=== PATIENT | female | born 1945 | race Caucasian/White ===

== ENCOUNTER → 2021-05-20 16:08 | Outpatient (CLI) | payer MEDICARE, OTHER, SELFPAY ==
--- NOTE | 2021-05-20 | DI.MRI.S_ITS ---
PROCEDURE: MR HEAD/BRAIN WO/W CON INDICATIONS: DIZZINESS AND GIDDINESS TECHNIQUE: Noncontrast axial T1 spin echo, axial T2 fast spin echo, sagittal and axial FLAIR, coronal T2 fast spin echo, axial gradient echo, axial diffusion and ADC through the brain. After the administration of contrast, axial and coronal T1 spin echo with fat saturation through the brain. COMPARISON: None. FINDINGS: Image quality: Excellent. CSF spaces: Basal cisterns are patent. No extra-axial fluid collections. Ventricles are normal in size and shape. Brain: No midline shift. No intracranial bleeds or masses. No abnormal intracranial enhancement. There is cerebral volume loss for age. There is periventricular white matter chronic small vessel ischemic change. The brainstem appears normal. Diffusion-weighted images demonstrate no acute ischemic insults. No chronic ischemic insults. Normal intravascular flow voids are present. Skull and face: Calvarial marrow is normal in signal. Orbits appear normal. Note is made of bilateral lens replacements. Sinuses: Sinuses and mastoids appear clear. IMPRESSION: Brain MRI within normal limits for age, demonstrating brain parenchymal volume loss and chronic small vessel ischemic change. No masses or abnormal enhancement can be seen. No findings of acute or subacute infarction can be seen. Dictated by: Yrn Ceja M.D. on 05/20/2021 at 16:22 Approved by: Yrn Ceja M.D. on 05/20/2021 at 16:23
== END ==
PROVIDERS: Family Provider Internal Medicine; PCP Internal Medicine; Referring Provider Internal Medicine; Visit Provider Internal Medicine
DX: R42 Dizziness and giddiness (principal)
CPT/HCPCS: 70553

== ENCOUNTER 2022-04-23 15:55 | Emergency (ER) | payer MEDICARE, OTHER, SELFPAY ==
[2022-04-23 16:00] VITALS: BP 214/94; PULSE 73; RESP 16; TEMP 36.6; O2SAT 97; BMI 41.5
--- NOTE | 2022-04-23 16:25 | DI.RAD.S_ITS ---
PROCEDURE: XR CHEST 1V INDICATIONS: chest pain TECHNIQUE: One view of the chest was acquired. COMPARISON: [facility], , CHEST 1 VIEW, 05/25/2017, 16:48. FINDINGS: Surgical changes and devices: None. Lungs and pleura: Lungs are clear. There is a 2.8 x 1.9 centimeter oval opacity in the right mid to lower lung field. No pleural effusions or pneumothorax. Mediastinum: Mediastinal contours appear normal. Heart size is normal. Bones and chest wall: No suspicious bony lesions. Overlying soft tissues appear unremarkable. IMPRESSION: 1. No acute cardiopulmonary abnormality. 2. 2.8 x 1.9 centimeter oval opacity in the right mid to lower lung field. This is probably due to overlying soft tissue. Recommend PA and lateral view of the chest with a nipple marker. Dictated by: Joe Delatorre M.D. on 04/23/2022 at 17:10 Approved by: Joe Delatorre M.D. on 04/23/2022 at 17:13
[2022-04-23 16:45] LABS: Prothrombin Time 11.9 SECONDS (10.1-12.7)
[2022-04-23 16:48] LABS: PTT Partial Thromboplastin Tim 29 SECONDS (26-36)
[2022-04-23 16:49] LABS: Alanine Aminotransferase 20 IU/L (<35); Albumin 4.3 g/dL (3.5-5.0); Albumin Globulin Ratio 1.1 (1.0-2.8); Alkaline Phosphatase 105 U/L (38-126); Aspartate Aminotransferase 22 IU/L (14-36); BUN Creatinine Ratio 18.7 (6-22); Bilirubin Total 0.7 mg/dL (0.2-1.3); Blood Urea Nitrogen 28 mg/dL (7-17); Calcium 9.2 mg/dL (8.4-10.2); Carbon Dioxide 28 mmol/L (22-32); Chloride 96 mmol/L (98-107); Creatine Kinase 55 U/L (30-135); Estimated Glomerular Filt Rate 36 mL/min (>60); Glucose 175 mg/dL (80-110); HEMOLYSIS < 15 (0-50); Lipase 182 U/L (23-300); Magnesium 1.9 mg/dL (1.6-2.3); Potassium 4.6 mmol/L (3.4-5.1); Sodium 137 mmol/L (137-145); Total Protein 8.3 g/dL (6.3-8.2)
[2022-04-23 17:00] LABS: Add Manual Diff / Slide Review NO; Basophils Absolute Auto 100 /uL (0-100); Basophils Percent Auto 0.9 % (0-2); Eosinophils Absolute Auto 600 /uL (0-450); Eosinophils Percent Auto 5.9 % (2-4); Hematocrit 37.1 % (36-46); Hemoglobin 12.7 g/dL (12.0-16.0); Lymphocytes Absolute Auto 2800 /uL (1100-4500); Lymphocytes Percent Auto 27.4 % (25-40); Mean Corpuscular HGB Conc 34.1 % (30-36); Mean Corpuscular Hemoglobin 29.3 PG (26-34); Mean Corpuscular Volume 85.8 fL (80-100); Monocytes Absolute Auto 600 /uL (0-900); Neutrophils Absolute Auto 6200 /uL (1500-7000); Neutrophils Percent Auto 59.8 % (50-75); Platelet Count 270 X10^3/uL (150-400); Red Blood Cell Count 4.32 X10^6/uL (4.0-5.2); Red Cell Distribution Width 14.1 % (11.6-14.8); White Blood Cell Count 10.3 X10^3/uL (4.5-11.0)
[2022-04-23 17:01] LABS: Troponin I < 0.012 ng/mL (0.01-0.034)
[2022-04-23 19:15] VITALS: BP 188/79; PULSE 78; RESP 16; O2SAT 95
--- NOTE | 2022-04-23 19:21 | ED_ITS ---
HPI - Recheck/Abnormal Lab/Rx General Chief Complaint: Recheck/Abnormal Lab/Rx Stated Complaint: High K Time Seen by Provider: 04/23/22 19:11 Source: patient Mode of arrival: Ambulatory History of Present Illness HPI narrative: Patient is a 76-year-old female who had labs drawn earlier today had an outside facility and was contacted and was told that her potassium was high and that her creatinine was high. She was told to come to the emergency department. She is no specific symptoms related to these. Related Data Home Medications Medication Instructions Recorded Confirmed aspirin 81 mg tablet,delayed 81 mg PO QDAY ##0 05/25/17 release atenolol 100 mg tablet 100 mg PO QDAY ##0 05/25/17 atorvastatin 40 mg tablet 40 mg PO QDAY ##0 05/25/17 fluticasone 250 mcg-salmeterol 50 1 puff INH BID ##0 05/25/17 mcg/dose blistr powdr for inhalation (Advair Diskus) levothyroxine 25 mcg tablet 25 mcg PO QAM ##0 05/25/17 (Synthroid) metformin 1,000 mg tablet 1,000 mg PO BIDCC ##0 05/25/17 valsartan 80 mg tablet (Diovan) 80 mg PO BID ##0 05/25/17 Previous Rx's Medication Instructions Recorded furosemide 40 mg tablet 40 mg PO BID #60 tabs 05/27/17 glipizide 10 mg tablet, extended 10 mg PO AMCC #30 tabs 05/27/17 release 24 hr Allergies Allergy/AdvReac Type Severity Reaction Status Date / Time lisinopril [LISINOPRIL] Allergy Unknown Unverified 08/03/17 12:28 telmisartan [From MICARDIS] Allergy Unknown Unverified 08/03/17 12:28 Review of Systems Cardiovascular Cardiovascular: Reports system reviewed and no additional complaints, except as documented Respiratory Respiratory: Reports system reviewed and no additional complaints, except as documented Gastrointestinal Gastrointestinal: Reports system reviewed and no additional complaints, except as documented Integumentary/Breasts Skin/Breast: Reports system reviewed and no additional complaints, except as documented Neurologic Neurologic: Reports system reviewed and no additional complaints, except as documented Hematologic/Lymphatic On Anticoagulants: No Patient History Social History Smoking Status: Never smoker Smoking Status: Never smoker alcohol intake frequency: holidays/special occasions only Substance Use Type: does not use Exam Initial Vital Signs Initial Vital Signs: Vital Signs Temperature 97.9 F 04/23/22 16:00 Pulse Rate 73 04/23/22 16:00 Respiratory Rate 16 04/23/22 16:00 Blood Pressure 214/94 H 04/23/22 16:00 Pulse Oximetry 97 04/23/22 16:00 Oxygen Delivery Method 04/23/22 16:00 Const General: cooperative, comfortable and No ill appearing HENMT Head: normal to inspection and normocephalic Resp Effort & Inspection: normal respiratory effort Cardio Rate: regular rate GI Inspection: normal to inspection Skin General: no rashes or lesions noted Neuro General: patient alert, patient awake and moves all extremities Extrem General: normal to inspection and capillary refill normal Course Orders Ordered: ED Orders 04/23/22 16:25 XR chest 1V Stat Complete Blood Count AUTO DIFF Stat Comprehensive Metabolic Panel Stat Lipase Stat Magnesium Stat Partial Thromboplastin Time Stat Prothrombin Time INR Stat Troponin & CK Cardiac Panel Stat 04/23/22 17:01 EKG-12 Lead Stat Vital Signs Vital signs: Vital Signs - 8 hr 04/23/22 19:15 Pulse Rate 78 Respiratory Rate 16 Blood Pressure 188/79 H Pulse Oximetry 95 Oxygen Delivery Method Room Air MDM - Recheck/Abnormal Lab/Rx Lab Data Attestation: I reviewed the patient's lab results. Result diagrams: 04/23/22 16:25 04/23/22 16:25 Labs: Lab Results 04/23/22 04/23/22 04/23/22 Range/Units 16:25 16:25 16:25 WBC 10.3 (4.5-11.0) X10^3/uL RBC 4.32 (4.0-5.2) X10^6/uL Hgb 12.7 (12.0-16.0) g/dL Hct 37.1 (36-46) % MCV 85.8 (80-100) fL MCH 29.3 (26-34) PG MCHC 34.1 (30-36) % RDW 14.1 (11.6-14.8) % Plt Count 270 (150-400) X10^3/uL Neut % (Auto) 59.8 (50-75) % Lymph % (Auto) 27.4 (25-40) % [place] % (Auto) 6.0 (3-14) % Eos % (Auto) 5.9 H (2-4) % Baso % (Auto) 0.9 (0-2) % Neut # (Auto) 6200 (2007-0029) /uL Lymph # (Auto) 2800 (2661-3304) /uL [place] # (Auto) 600 (0-900) /uL Eos # (Auto) 600 H (0-450) /uL Baso # (Auto) 100 (0-100) /uL PT 11.9 (10.1-12.7) SECONDS INR 1.0 (0.9-1.3) APTT 29 (26-36) SECONDS Sodium 137 (137-145) mmol/L Potassium 4.6 (3.4-5.1) mmol/L Chloride 96 L (98-107) mmol/L Carbon Dioxide 28 (22-32) mmol/L BUN 28 H (7-17) mg/dL Creatinine 1.50 H (0.52-1.04) mg/dL Estimated GFR 36 L (>60) mL/min BUN/Creatinine Ratio 18.7 (6-22) Glucose 175 H (80-110) mg/dL Calcium 9.2 (8.4-10.2) mg/dL Magnesium 1.9 (1.6-2.3) mg/dL Total Bilirubin 0.7 (0.2-1.3) mg/dL AST 22 (14-36) IU/L ALT 20 (<35) IU/L Alkaline Phosphatase 105 (38-126) U/L Total Creatine Kinase 55 (30-135) U/L CK-MB (CK-2) TNP CK-MB (CK-2) Rel Index TNP Troponin I < 0.012 (0.01-0.034) ng/mL Total Protein 8.3 H (6.3-8.2) g/dL Albumin 4.3 (3.5-5.0) g/dL Globulin 4.0 (1.7-4.1) g/dL Albumin/Globulin Ratio 1.1 (1.0-2.8) Lipase 182 (23-300) U/L Imaging Data Chest x-ray: Radiologist's Impression: [address] [address] XRay Report Signed Patient: Cristal Sauer MR#: [id number] : 1945 Acct:[id number] Age/Sex: 76 / F Date of Service: 04/23/22 Loc: ED Accession Number: [id number] ?? Procedure: XR chest 1V Ordering Provider: Denys Levine D.O. PROCEDURE:? XR CHEST 1V ? INDICATIONS:? chest pain ? TECHNIQUE:? One view of the chest was acquired.? ? COMPARISON:? [facility], CHEST 1 VIEW, 05/25/2017, 16:48. ? FINDINGS:? ? Surgical changes and devices:? None.? ? Lungs and pleura:? Lungs are clear.? There is a 2.8 x 1.9 centimeter oval opacity in the right mid to lower lung field.? No pleural effusions or pneumothorax.? ? Mediastinum:? Mediastinal contours appear normal.? Heart size is normal.? ? Bones and chest wall:? No suspicious bony lesions.? Overlying soft tissues appear unremarkable.? ? IMPRESSION:? 1. No acute cardiopulmonary abnormality. 2. 2.8 x 1.9 centimeter oval opacity in the right mid to lower lung field.? This is probably due to overlying soft tissue.? Recommend PA and lateral view of the chest with a nipple marker.? ? Dictated by: Joe Delatorre M.D. on 04/23/2022 at 17:10 ? ? Approved by: Joe Delatorre M.D. on 04/23/2022 at 17:13?? ECG Data Attestation: I personally reviewed and interpreted this ECG as follows: Interpretation: Sinus rhythm Ventricular rate is 71 Normal axis Normal QTC Nonspecific ST T wave changes MDM Narrative Medical decision making narrative: The potassium on the labs today is unremarkable. I informed her that the elevation earlier today was a lab abnormality and most likely hemolysis. She does have a creatinine 1.5 but I do not have a baseline for her. Instructed her that she should contact her primary doctor for this. We also discussed the abnormal finding on her chest x-ray and that she should follow up with her primary doctor regarding this as well. Will discharge home without further workup here in the ER. Discharge Plan Departure Patient Disposition: Home Clinical Impression: Hypertension, Lung nodule Instructions: High Blood Pressure Activity Restrictions/Additional Instructions: Recommend that you continue to take all of your medications as directed and continue to take your blood pressure at home. Contact your primary doctor for follow-up. Return to the emergency department for any new or worsening symptoms. Prescriptions: No Action fluticasone propion-salmeterol [Advair Diskus] 250 MCG/50 MCG blister with device 1 puff INH BID Qty: 0 atenolol 100 MG tablet 100 mg PO QDAY Qty: 0 atorvastatin 40 MG tablet 40 mg PO QDAY Qty: 0 valsartan [Diovan] 80 MG tablet 80 mg PO BID Qty: 0 metformin 1,000 MG tablet 1,000 mg PO BIDCC Qty: 0 aspirin 81 MG tablet,delayed release (DR/EC) 81 mg PO QDAY Qty: 0 levothyroxine [Synthroid] 25 MCG tablet 25 mcg PO QAM Qty: 0 furosemide 40 MG tablet 40 mg PO BID Qty: 60 0RF glipizide 10 MG tablet extended release 24hr 10 mg PO AMCC Qty: 30 0RF Referrals: Kathy Denny MD [Primary Care Provider] -
== END 2022-04-23 19:40 | disposition home or self-care (01) ==
PROVIDERS: Emergency Medicine; Emergency Provider Emergency Medicine; Family Provider Internal Medicine; PCP Internal Medicine
DX: I10 Essential (primary) hypertension (principal); R91.1 Solitary pulmonary nodule; R07.9 Chest pain, unspecified
CPT/HCPCS: 71045; 80053; 82550; 83690; 83735; 84484; 85025; 85610; 85730; 93005; 99281; 99284

== ENCOUNTER 2023-08-01 15:50 | Emergency (ER) | payer MEDICARE, OTHER, SELFPAY ==
[2023-08-01 16:31] VITALS: BP 218/88; PULSE 85; RESP 18; TEMP 36.7; O2SAT 95; BMI 42.3
[2023-08-01 19:48] VITALS: BP 201/88; PULSE 88; RESP 16; O2SAT 96
--- NOTE | 2023-08-01 20:12 | ED.GENADULT ---
HPI - General Adult General Chief complaint: Extremity Injury, Upper Stated complaint: L index/ elbow/ swollen/painful/hot to touch T-4 Time Seen by Provider: 08/01/23 19:45 Source: patient and family Mode of arrival: Ambulatory History of Present Illness HPI narrative: 77-year-old female no history of gout. Here for evaluation of left elbow redness and tenderness and left index and middle finger redness. These areas are also swollen and warm to the touch. The symptom has been going on for the past 4 days. No fevers. No other joint tenderness. No trauma. She has had a history of cellulitis. Is not currently on antibiotics. No fevers. Related Data Home Medications Medication Instructions Recorded Confirmed aspirin 81 mg tablet,delayed 81 mg PO QDAY ##0 05/25/17 release atenolol 100 mg tablet 100 mg PO QDAY ##0 05/25/17 atorvastatin 40 mg tablet 40 mg PO QDAY ##0 05/25/17 fluticasone 250 mcg-salmeterol 50 1 puff INH BID ##0 05/25/17 mcg/dose blistr powdr for inhalation (Advair Diskus) levothyroxine 25 mcg tablet 25 mcg PO QAM ##0 05/25/17 (Synthroid) metformin 1,000 mg tablet 1,000 mg PO BIDCC ##0 05/25/17 valsartan 80 mg tablet (Diovan) 80 mg PO BID ##0 05/25/17 Previous Rx's Medication Instructions Recorded furosemide 40 mg tablet 40 mg PO BID #60 tabs 05/27/17 glipizide 10 mg tablet, extended 10 mg PO [facility] #30 tabs 05/27/17 release 24 hr cephalexin 500 mg capsule 500 mg PO QID 7 days #28 caps 08/01/23 Allergies Allergy/AdvReac Type Severity Reaction Status Date / Time lisinopril [LISINOPRIL] Allergy Unknown Unverified 08/03/17 12:28 telmisartan [From MICARDIS] Allergy Unknown Unverified 08/03/17 12:28 Review of Systems Constitutional Constitutional: Reports system reviewed and no additional complaints, except as documented Musculoskeletal Musculoskeletal: Reports system reviewed and no additional complaints, except as documented Integumentary/Breasts Skin/Breast: Reports system reviewed and no additional complaints, except as documented Neurologic Neurologic: Reports system reviewed and no additional complaints, except as documented Patient History Social History Smoking Status: Never smoker Smoking Status: Never smoker alcohol intake frequency: holidays/special occasions only Substance Use Type: does not use Exam Initial Vital Signs Initial Vital Signs: Vital Signs Temperature 98.1 F 08/01/23 16:31 Pulse Rate 85 08/01/23 16:31 Respiratory Rate 18 08/01/23 16:31 Blood Pressure 218/88 H 08/01/23 16:31 Pulse Oximetry 95 08/01/23 16:31 Oxygen Delivery Method Room Air 08/01/23 16:31 Const General: cooperative and comfortable HENMT Head: normal to inspection and normocephalic Cardio Pulses: radial pulses present on the left Skin Other: Tenderness to palpation specifically over the olecranon process of the left elbow. No vesicles or blisters. Has redness on the left index finger and middle finger. It does extend a short distance proximal to the MCP joint the dorsum of the hand. Neuro Sensory Exam: no sensory deficits noted Extrem Other: Patient can flex and extend at the elbow and also with the fingers but somewhat limited because of discomfort Course Orders Ordered: Discontinued Medications Cephalexin HCl (Cephalexin 250 Mg Capsule) 500 mg PO NOW ONE Stop: 08/01/23 20:13 Last Admin: 08/01/23 20:19 Dose: 500 mg Documented By: JONY Vital Signs Vital signs: Vital Signs - 8 hr 08/01/23 19:48 08/01/23 20:31 Pulse Rate 88 80 Respiratory Rate 16 16 Blood Pressure 201/88 H 190/85 H Pulse Oximetry 96 96 Oxygen Delivery Method Room Air Room Air Medical Decision Making [facility] Narrative Medical decision making narrative: Patient does not have a history of gout. Her presentation today I would consider not consistent with gout. She does have redness and tenderness over the olecranon of the left elbow and also the fingers of the left hand. She was afebrile. No leukocytosis. Considered septic joint but her exam is more consistent with a cellulitis. There are no breaks in the skin. No deep abscesses. Will place the patient on antibiotics. First dose given here in the ER. Will send a prescription to the pharmacy of her choice. She was given return precautions. She expressed understanding and agreement. Discharge Plan Departure Patient Disposition: Home Clinical Impression: Cellulitis Instructions: Cellulitis Activity Restrictions/Additional Instructions: Take the antibiotics as directed. You can also take Tylenol for any discomfort. If your symptoms worsen despite the antibiotics please return to the emergency department for further evaluation. Prescriptions: New cephalexin 500 mg capsule 500 mg PO QID 7 Days Qty: 28 0RF No Action fluticasone propion-salmeterol [Advair Diskus] 250 MCG/50 MCG blister with device 1 puff INH BID Qty: 0 atenolol 100 MG tablet 100 mg PO QDAY Qty: 0 atorvastatin 40 MG tablet 40 mg PO QDAY Qty: 0 valsartan [Diovan] 80 MG tablet 80 mg PO BID Qty: 0 metformin 1,000 MG tablet 1,000 mg PO BIDCC Qty: 0 aspirin 81 MG tablet,delayed release (DR/EC) 81 mg PO QDAY Qty: 0 levothyroxine [Synthroid] 25 MCG tablet 25 mcg PO QAM Qty: 0 furosemide 40 MG tablet 40 mg PO BID Qty: 60 0RF glipizide 10 MG tablet extended release 24hr 10 mg PO AMCC Qty: 30 0RF Referrals: Kathy Denny MD [Family Provider] - Stand Alone Forms: Patient Portal/API
[2023-08-01] MEDS: cephALEXin 250 MG CAPSULE 500 MG PO (20:19)
[2023-08-01 20:31] VITALS: BP 190/85; PULSE 80; RESP 16; O2SAT 96
== END 2023-08-01 20:32 | disposition home or self-care (01) ==
PROVIDERS: Emergency Provider Emergency Medicine; Family Provider Internal Medicine; PCP Family Medicine
DX: L03.114 Cellulitis of left upper limb (principal)
CPT/HCPCS: 99283

== ENCOUNTER → 2023-10-19 13:56 | Outpatient (CLI) | payer MEDICARE, OTHER, SELFPAY ==
--- NOTE | 2023-10-19 13:57 | DI.RAD.S_ITS ---
PROCEDURE: XR DEXA AXIAL SKELETON INDICATIONS: AGE RELATED OSTEOPOROSIS COMPARISON: [facility], , DEXA AXIAL SKELETON, 10/22/2016, 10:41. FINDINGS: Lumbar Spine: Bone mineral density 1.420 g/cm2, T score 3.3. Left Hip: Bone mineral density 1.169 g/cm2, T score 1.9. Left Femoral Neck: Bone mineral density is 0.832 g/cm2, T score -0.2. Right Hip: Bone mineral density 1.080 g/cm2, T score 1.1. Right Femoral Neck: Bone mineral density 0.807 g/cm2, T score -0.4. Fracture Risk Calculation (when applicable): 10-year fracture risk of a major osteoporotic fracture 7.1% and of a hip fracture 0.7%. (T score greater or equal to -1.0 to: NORMAL) (T score from -1.1 to -2.4: OSTEOPENIA) (T score less than or equal to -2.5: OSTEOPOROSIS) IMPRESSION: Normal bone mineral density. Follow-up guidelines as follows: Osteoporosis: Consider a repeat DEXA and Vertebral Fracture Assessment (VFA) exam in 2 years or sooner if medically necessary, to reassess this patient's status. Osteopenia: Consider a repeat DEXA in 2-3 years to reassess this patient's status, or if there is a new clinical indication. Normal: Consider a repeat DEXA in 5 years or sooner, or if there is a new clinical indication. All treatment decisions require clinical judgment and consideration of individual patient factors, including patient preferences, comorbidities, previous drug use, risk factors not captured in the FRAX model (e.g., frailty, falls, vitamin D deficiency, increased bone turnover, interval significant decline in bone density ) and possible under- or over-estimation of fracture risk by FRAX. In addition, the NOF Guide recommends that FDA-approved medical therapies be considered in postmenopausal women and men age >= 50 years with a: * Hip or vertebral (clinical or morphometric) fracture * T-score of <=-2.5 at the spine or hip * Ten-year fracture probability by FRAX of >= 3% for hip fracture or >=20% for major osteoporotic fracture. People with diagnosed cases of osteoporosis or at high risk for fracture should have regular bone mineral density tests. For patients eligible for Medicare, routine testing is allowed once every 2 years. The testing frequency can be increased to one year for patients who have rapidly progressing disease, those who are receiving or discontinuing medical therapy to restore bone mass, or have additional risk factors. Dictated by: Justo Laura M.D. on 10/19/2023 at 16:48 Approved by: Justo Laura M.D. on 10/19/2023 at 16:50
== END ==
PROVIDERS: Family Provider Internal Medicine; PCP Family Medicine; Referring Provider Family Medicine; Visit Provider Family Medicine
DX: M81.0 Age-related osteoporosis without current pathological fracture (principal)
CPT/HCPCS: 77080

== ENCOUNTER 2024-04-15 14:04 | Emergency (ER) | payer MEDICARE, OTHER, SELFPAY ==
[2024-04-15] VITALS (21 sets, daily range): BP systolic 110–193; BP diastolic 53–84; PULSE 64–83; RESP 14–24; TEMP 36.5; O2SAT 95–100; BMI 40.6
[2024-04-15 15:05] LABS: Hemoglobin 12.4 g/dL (12.0-16.0); Mean Corpuscular HGB Conc 31.7 % (30-36); Mean Corpuscular Hemoglobin 29.8 PG (26-34); Mean Corpuscular Volume 93.9 fL (80-100); Platelet Count 206 X10^3/uL (150-400); Red Blood Cell Count 4.16 X10^6/uL (4.0-5.2); Red Cell Distribution Width 17.1 % (11.6-14.8); White Blood Cell Count 10.5 X10^3/uL (4.5-11.0)
--- NOTE | 2024-04-15 15:05 | EKG_ITS ---
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
[2024-04-15 15:07] LABS: Add Manual Diff / Slide Review YES
[2024-04-15 15:16] LABS: Alanine Aminotransferase 28 IU/L (<35); Albumin 3.8 g/dL (3.5-5.0); Albumin Globulin Ratio 1.4 (1.0-2.8); Alkaline Phosphatase 93 U/L (38-126); Aspartate Aminotransferase 24 IU/L (14-36); BUN Creatinine Ratio 31.7 (6-22); Bilirubin Total 0.6 mg/dL (0.2-1.3); Blood Urea Nitrogen 73 mg/dL (7-17); Calcium 9.2 mg/dL (8.4-10.2); Carbon Dioxide 14 mmol/L (22-32); Chloride 116 mmol/L (98-107); Estimated Glomerular Filt Rate 21 mL/min (>60); Globulin 2.7 g/dL (1.7-4.1); Glucose 134 mg/dL (80-110); HEMOLYSIS 17 (0-50); Sodium 138 mmol/L (137-145); Total Protein 6.5 g/dL (6.3-8.2)
[2024-04-15 15:25] LABS: Potassium 5.8 mmol/L (3.4-5.1)
[2024-04-15 15:36] LABS: Anisocytosis 1+; Neutrophils Absolute Manual 5145 /uL (3000-5900); Total Cells Counted 100
--- NOTE | 2024-04-15 16:44 | ED.RECABL ---
HPI - Recheck/Abnormal Lab/Rx <Jeff Saraiva MD - Last Filed: 04/16/24 07:33> General Chief Complaint: Recheck/Abnormal Lab/Rx Stated Complaint: Sent by PCP for Bloodwork/Recheck Time Seen by Provider: 04/15/24 16:42 History of Present Illness HPI narrative: 78-year-old female has history of chronic skin rash that she attributes to nerves, apparently felt to have infection by her regular provider, taking doxycycline and another oral antibiotic that she can not name, having diarrhea yesterday, labs were drawn, she was told that she would abnormal potassium that was too high, here for further evaluation. No black or red stools. No nausea or vomiting. She denies chest pain, denies shortness of breath. She has not recall having any previous problems with her kidneys. Related Data Home Medications Medication Instructions Recorded Confirmed aspirin 81 mg tablet,delayed 81 mg PO QDAY ##0 05/25/17 release atenolol 100 mg tablet 100 mg PO QDAY ##0 05/25/17 atorvastatin 40 mg tablet 40 mg PO QDAY ##0 05/25/17 fluticasone 250 mcg-salmeterol 50 1 puff INH BID ##0 05/25/17 mcg/dose blistr powdr for inhalation (Advair Diskus) levothyroxine 25 mcg tablet 25 mcg PO QAM ##0 05/25/17 (Synthroid) metformin 1,000 mg tablet 1,000 mg PO BIDCC ##0 05/25/17 valsartan 80 mg tablet (Diovan) 80 mg PO BID ##0 05/25/17 Previous Rx's Medication Instructions Recorded furosemide 40 mg tablet 40 mg PO BID #60 tabs 05/27/17 glipizide 10 mg tablet, extended 10 mg PO [facility] #[facility] tabs 05/27/17 release 24 hr Allergies Allergy/AdvReac Type Severity Reaction Status Date / Time empagliflozin Allergy Intermediate Verified 04/15/24 14:08 [From Jardiance] lisinopril [LISINOPRIL] Allergy Unknown Unverified 08/03/17 12:28 telmisartan [From MICARDIS] Allergy Unknown Unverified 08/03/17 12:28 alendronate sodium AdvReac Severe kidney Verified 04/15/24 14:10 function Patient History <Jeff Saravia MD - Last Filed: 04/16/24 07:33> Social History Smoking Status: Never smoker Smoking Status: Never smoker alcohol intake frequency: holidays/special occasions only Exam <Jeff Saravia MD - Last Filed: 04/16/24 07:33> Narrative Exam Narrative: GENERAL: Well-developed patient, in mild distress. HEAD: Atraumatic. Normocephalic. EYES: Pupils equal round and reactive. Extraocular motions intact. No scleral icterus. No injection or drainage. ENT: Nose without bleeding, purulent drainage. Throat without erythema, tonsillar hypertrophy or exudate. Airway patent. NECK: Trachea midline. Non tender CARDIOVASCULAR: Regular rate and rhythm without murmurs, gallops, or rubs. RESPIRATORY: Clear to auscultation. Breath sounds equal bilaterally. No wheezes, rales, or rhonchi. GASTROINTESTINAL: Abdomen soft, non-tender, nondistended. EXTREMITIES: No edema or joint tenderness. BACK: Nontender without deformity or crepitance. No flank tenderness. NEURO: AOx3. Motor functions grossly nonfocal SKIN: No rash or erythema of visible areas. Diffuse dry skin changes with some scale, denies history of eczema but could consider, no obvious urticarial plaques, no vesicles, no areas of erythema or cellulitis seem obvious. Initial Vital Signs Initial Vital Signs: Vital Signs Temperature 97.7 F 04/15/24 14:10 Pulse Rate 77 04/15/24 14:10 Respiratory Rate 16 04/15/24 14:10 Blood Pressure 128/65 04/15/24 14:10 Pulse Oximetry 99 04/15/24 14:10 Oxygen Delivery Method Room Air 04/15/24 14:10 <Latisha Nieto DO - Last Filed: 04/16/24 01:47> Initial Vital Signs Initial Vital Signs: Vital Signs Temperature 97.7 F 04/15/24 14:10 Pulse Rate 77 04/15/24 14:10 Respiratory Rate 16 04/15/24 14:10 Blood Pressure 128/65 04/15/24 14:10 Pulse Oximetry 99 04/15/24 14:10 Oxygen Delivery Method Room Air 04/15/24 14:10 Course <Jeff Saravia MD - Last Filed: 04/16/24 07:33> Orders Ordered: Discontinued Medications Sodium Chloride (Normal Saline 0.9%) 1,000 mls @ 1,000 mls/hr IV BOLUS ONE Stop: 04/15/24 17:41 Last Infusion: 04/15/24 17:56 Dose: Infused Documented By: Admin: 04/15/24 17:00 Dose: 1,000 mls/hr Documented By: ALISHA Sodium Chloride (Normal Saline 0.9%) 1,000 mls @ 1,000 mls/hr IV BOLUS ONE Stop: 04/15/24 19:45 Last Infusion: 04/15/24 19:35 Dose: Infused Documented By: Admin: 04/15/24 18:50 Dose: 1,000 mls/hr Documented By: ALISHA Sodium Chloride (Normal Saline 0.9%) 1,000 mls @ 150 mls/hr IV CONT KAREN Last Admin: 04/15/24 19:37 Dose: 150 mls/hr Documented By: ALISHA Vital Signs Vital signs: Vital Signs - 8 hr 04/15/24 18:00 04/15/24 18:00 04/15/24 18:21 Pulse Rate 68 Respiratory Rate 16 Blood Pressure 153/80 H 169/74 H Pulse Oximetry 98 Oxygen Delivery Method 04/15/24 18:21 04/15/24 18:30 04/15/24 18:30 Pulse Rate 81 67 Respiratory Rate 18 16 Blood Pressure 158/69 H Pulse Oximetry 97 100 Oxygen Delivery Method 04/15/24 19:00 04/15/24 19:00 04/15/24 19:30 Pulse Rate 72 Respiratory Rate 14 Blood Pressure 171/75 H 163/84 H Pulse Oximetry 100 Oxygen Delivery Method 04/15/24 19:30 04/15/24 20:00 04/15/24 20:00 Pulse Rate 73 80 Respiratory Rate 16 20 Blood Pressure 110/73 Pulse Oximetry 98 98 Oxygen Delivery Method 04/15/24 20:30 04/15/24 20:30 04/15/24 21:02 Pulse Rate 75 81 Respiratory Rate 15 23 Blood Pressure 155/70 H Pulse Oximetry 98 98 Oxygen Delivery Method 04/15/24 21:03 04/15/24 21:30 04/15/24 21:31 Pulse Rate 76 Respiratory Rate 16 Blood Pressure 167/72 H 193/79 H Pulse Oximetry 98 Oxygen Delivery Method 04/15/24 21:32 04/15/24 21:32 04/15/24 22:00 Pulse Rate 82 Respiratory Rate 24 Blood Pressure 188/83 H 164/67 H Pulse Oximetry 99 Oxygen Delivery Method 04/15/24 22:00 04/15/24 22:16 Pulse Rate 83 77 Respiratory Rate 24 14 Blood Pressure 164/67 H Pulse Oximetry 99 98 Oxygen Delivery Method Room Air <Latisha Nieto DO - Last Filed: 04/16/24 01:47> Orders Ordered: Discontinued Medications Sodium Chloride (Normal Saline 0.9%) 1,000 mls @ 1,000 mls/hr IV BOLUS ONE Stop: 04/15/24 17:41 Last Infusion: 04/15/24 17:56 Dose: Infused Documented By: Admin: 04/15/24 17:00 Dose: 1,000 mls/hr Documented By: ALISHA Sodium Chloride (Normal Saline 0.9%) 1,000 mls @ 1,000 mls/hr IV BOLUS ONE Stop: 04/15/24 19:45 Last Infusion: 04/15/24 19:35 Dose: Infused Documented By: Admin: 04/15/24 18:50 Dose: 1,000 mls/hr Documented By: ALISHA Sodium Chloride (Normal Saline 0.9%) 1,000 mls @ 150 mls/hr IV CONT KAREN Last Admin: 04/15/24 19:37 Dose: 150 mls/hr Documented By: ALISHA Vital Signs Vital signs: Vital Signs - 8 hr 04/15/24 18:00 04/15/24 18:00 04/15/24 18:21 Pulse Rate 68 Respiratory Rate 16 Blood Pressure 153/80 H 169/74 H Pulse Oximetry 98 Oxygen Delivery Method 04/15/24 18:21 04/15/24 18:30 04/15/24 18:30 Pulse Rate 81 67 Respiratory Rate 18 16 Blood Pressure 158/69 H Pulse Oximetry 97 100 Oxygen Delivery Method 04/15/24 19:00 04/15/24 19:00 04/15/24 19:30 Pulse Rate 72 Respiratory Rate 14 Blood Pressure 171/75 H 163/84 H Pulse Oximetry 100 Oxygen Delivery Method 04/15/24 19:30 04/15/24 20:00 04/15/24 20:00 Pulse Rate 73 80 Respiratory Rate 16 20 Blood Pressure 110/73 Pulse Oximetry 98 98 Oxygen Delivery Method 04/15/24 20:30 04/15/24 20:30 04/15/24 21:02 Pulse Rate 75 81 Respiratory Rate 15 23 Blood Pressure 155/70 H Pulse Oximetry 98 98 Oxygen Delivery Method 04/15/24 21:03 04/15/24 21:30 04/15/24 21:31 Pulse Rate 76 Respiratory Rate 16 Blood Pressure 167/72 H 193/79 H Pulse Oximetry 98 Oxygen Delivery Method 04/15/24 21:32 04/15/24 21:32 04/15/24 22:00 Pulse Rate 82 Respiratory Rate 24 Blood Pressure 188/83 H 164/67 H Pulse Oximetry 99 Oxygen Delivery Method 04/15/24 22:00 04/15/24 22:16 Pulse Rate 83 77 Respiratory Rate 24 14 Blood Pressure 164/67 H Pulse Oximetry 99 98 Oxygen Delivery Method Room Air MDM - Recheck/Abnormal Lab/Rx <Jeff Saravia MD - Last Filed: 04/16/24 07:33> Lab Data Attestation: I reviewed the patient's lab results. Lab results narrative: White blood cell count 24170, hemoglobin 12.4, platelets [id number]. Potassium 5.8 elevated. Serum CO2 14 decreased. BUN 73 with creatinine 2.3, glucose 134. Liver functions unremarkable 04/15/24 14:57 04/15/24 21:27 Labs: Lab Results 04/15/24 04/15/24 Range/Units 14:57 21:27 WBC 10.5 (4.5-11.0) X10^3/uL RBC 4.16 (4.0-5.2) X10^6/uL Hgb 12.4 (12.0-16.0) g/dL Hct 39.0 (36-46) % MCV 93.9 (80-100) fL MCH 29.8 (26-34) PG MCHC 31.7 (30-36) % RDW 17.1 H (11.6-14.8) % Plt Count 206 (150-400) X10^3/uL Neut % (Auto) Not Reportable Lymph % (Auto) Not Reportable [place] % (Auto) Not Reportable Eos % (Auto) Not Reportable Baso % (Auto) Not Reportable Lymph # (Auto) Not Reportable [place] # (Auto) Not Reportable Baso # (Auto) Not Reportable Total Counted 100 Seg Neutrophils % 48.0 (38-70) % Band Neutrophils % 1.0 L (3-7) % Lymphocytes % (Manual) 20.0 L (25-45) % Monocytes % (Manual) 2.0 (2-11) % Eosinophils % (Manual) 28.0 H (2-4) % Basophils % (Manual) 1.0 (0-1) % Neutrophils # (Manual) 5145 (9726-0021) /uL RBC Morphology See below Anisocytosis 1+ H Sodium 138 136 L (137-145) mmol/L Potassium 5.8 H 5.1 (3.4-5.1) mmol/L Chloride 116 H 119 H (98-107) mmol/L Carbon Dioxide 14 L 13 L (22-32) mmol/L BUN 73 H 63 H (7-17) mg/dL Creatinine 2.30 H 1.77 H (0.52-1.04) mg/dL Estimated GFR 21 L 29 L (>60) mL/min BUN/Creatinine Ratio 31.7 H 35.6 H (6-22) Glucose 134 H 101 (80-110) mg/dL Calcium 9.2 8.4 (8.4-10.2) mg/dL Total Bilirubin 0.6 (0.2-1.3) mg/dL AST 24 (14-36) IU/L ALT 28 (<35) IU/L Alkaline Phosphatase 93 (38-126) U/L Total Protein 6.5 (6.3-8.2) g/dL Albumin 3.8 (3.5-5.0) g/dL Globulin 2.7 (1.7-4.1) g/dL Albumin/Globulin Ratio 1.4 (1.0-2.8) MDM Narrative Medical decision making narrative: 78-year-old female on to oral antibiotics for possible skin infection, loose stools, called about abnormal blood test. Labs sent here, potassium 5.8 noted with BUN and creatinine elevated from previous baseline. In context of diarrhea consider dehydration. IV fluid bolus. Oral Lokelma dose for now. Consider admission, will contact hospitalist, though patient does not seem to be interested in admission at this time. Case discussed with hospitalist Dr. Lezama, suggests a trial of IV fluids and Lokelma, repeat BMP planned later this evening. Signed out to [facility] ED shift physician Dr. Nieto. Dr. Nieto-patient signed out to me by Dr. Saravia I have seen evaluated patient myself. Discussed with her that she was quite dehydrated she has an elevated creatinine 2.3 previously 1.5 and a BUN of 73 previously 28 bicarb 14 previously 8 potassium 5.8. She has been having diarrhea most likely dehydration. Getting a 2 L of IV fluids and rechecking labs. Discussed with her need for admission to the hospital for IV fluids and monitoring. She is not willing to stay in the hospital. She has a take her has been dialysis in the morning. She is agreeable to stay for 2 L of fluid Patient is a 2 L of IV fluid and ongoing maintenance fluids she does have improvement in her potassium 5.1 creatinine has also improved at 1.77 closer to her baseline of 1.5 BUN is 63. She was increased chloride which is to be expected after 2 L of normal saline. She has not had any diarrhea in the ED. she would still like to go home. I encouraged her to have outpatient blood work done. <Latisha Nieto, - Last Filed: 04/16/24 01:47> Lab Data Labs: Lab Results 04/15/24 04/15/24 Range/Units 14:57 21:27 WBC 10.5 (4.5-11.0) X10^3/uL RBC 4.16 (4.0-5.2) X10^6/uL Hgb 12.4 (12.0-16.0) g/dL Hct 39.0 (36-46) % MCV 93.9 (80-100) fL MCH 29.8 (26-34) PG MCHC 31.7 (30-36) % RDW 17.1 H (11.6-14.8) % Plt Count 206 (150-400) X10^3/uL Neut % (Auto) Not Reportable Lymph % (Auto) Not Reportable [place] % (Auto) Not Reportable Eos % (Auto) Not Reportable Baso % (Auto) Not Reportable Lymph # (Auto) Not Reportable [place] # (Auto) Not Reportable Baso # (Auto) Not Reportable Total Counted 100 Seg Neutrophils % 48.0 (38-70) % Band Neutrophils % 1.0 L (3-7) % Lymphocytes % (Manual) 20.0 L (25-45) % Monocytes % (Manual) 2.0 (2-11) % Eosinophils % (Manual) 28.0 H (2-4) % Basophils % (Manual) 1.0 (0-1) % Neutrophils # (Manual) 5145 (1408-3075) /uL RBC Morphology See below Anisocytosis 1+ H Sodium 138 136 L (137-145) mmol/L Potassium 5.8 H 5.1 (3.4-5.1) mmol/L Chloride 116 H 119 H (98-107) mmol/L Carbon Dioxide 14 L 13 L (22-32) mmol/L BUN 73 H 63 H (7-17) mg/dL Creatinine 2.30 H 1.77 H (0.52-1.04) mg/dL Estimated GFR 21 L 29 L (>60) mL/min BUN/Creatinine Ratio 31.7 H 35.6 H (6-22) Glucose 134 H 101 (80-110) mg/dL Calcium 9.2 8.4 (8.4-10.2) mg/dL Total Bilirubin 0.6 (0.2-1.3) mg/dL AST 24 (14-36) IU/L ALT 28 (<35) IU/L Alkaline Phosphatase 93 (38-126) U/L Total Protein 6.5 (6.3-8.2) g/dL Albumin 3.8 (3.5-5.0) g/dL Globulin 2.7 (1.7-4.1) g/dL Albumin/Globulin Ratio 1.4 (1.0-2.8) MDM Narrative Medical decision making narrative: 78-year-old female on to oral antibiotics for possible skin infection, loose stools, called about abnormal blood test. Labs sent here, potassium 5.8 noted with BUN and creatinine elevated from previous baseline. In context of diarrhea consider dehydration. IV fluid bolus. Oral Lokelma dose for now. Consider admission, we will contact hospitalist, though patient does not seem to be interested in admission. Case discussed with Dr. Lezama, agrees with trial of IV fluids and Lokelma, repeat BMP planned later this evening. Signed out to oncoming ED shift physician Dr. Nieto. Dr. Nieto-patient signed out to me by Dr. Saravia I have seen evaluated patient myself. Discussed with her that she was quite dehydrated she has an elevated creatinine 2.3 previously 1.5 and a BUN of 73 previously 28 bicarb 14 previously 8 potassium 5.8. She has been having diarrhea most likely dehydration. Getting a 2 L of IV fluids and rechecking labs. Discussed with her need for admission to the hospital for IV fluids and monitoring. She is not willing to stay in the hospital. She has a take her has been dialysis in the morning. She is agreeable to stay for 2 L of fluid Patient is a 2 L of IV fluid and ongoing maintenance fluids she does have improvement in her potassium 5.1 creatinine has also improved at 1.77 closer to her baseline of 1.5 BUN is 63. She was increased chloride which is to be expected after 2 L of normal saline. She has not had any diarrhea in the ED. she would still like to go home. I encouraged her to have outpatient blood work done. Discharge Plan Departure Patient Disposition: Home Clinical Impression: Hyperkalemia, MARIELA (acute kidney injury), Diarrhea, Skin rash Instructions: Dehydration Activity Restrictions/Additional Instructions: *You have been diagnosed with dehydration elevated potassium *What to do: Increase fluids as tolerated I do recommend electrolyte fluid such as Pedialyte. I do suggest that you get repeat kidney function test and electrolytes done this week with your primary care provider. *Continue to take medications as directed *Follow up with your primary care provider in 2-3 days or call [phone] *Return to ER if you should have increasing diarrhea dizziness vomiting or any new, worsening or concerning symptoms Prescriptions: No Action fluticasone propion-salmeterol [Advair Diskus] 250 MCG/50 MCG blister with device 1 puff INH BID Qty: 0 atenolol 100 MG tablet 100 mg PO QDAY Qty: 0 atorvastatin 40 MG tablet 40 mg PO QDAY Qty: 0 valsartan [Diovan] 80 MG tablet 80 mg PO BID Qty: 0 metformin 1,000 MG tablet 1,000 mg PO BIDCC Qty: 0 aspirin 81 MG tablet,delayed release (DR/EC) 81 mg PO QDAY Qty: 0 levothyroxine [Synthroid] 25 MCG tablet 25 mcg PO QAM Qty: 0 furosemide 40 MG tablet 40 mg PO BID Qty: 60 0RF glipizide 10 MG tablet extended release 24hr 10 mg PO [facility] Qty: 30 0RF Referrals: Ioana Jenkins DO [Primary Care Provider] - Stand Alone Forms: Patient Portal/API/Survey
[2024-04-15] MEDS: SODIUM ZIRCONIUM CYCLOSILICATE 10 GM POWD.PACK PO (16:59)
[2024-04-15] MEDS: SODIUM CHLORIDE 0.9% 1,000 ML 1000 ML IV ×2 (17:00→18:50)
[2024-04-15] MEDS: SODIUM CHLORIDE 0.9% 1,000 ML 150 ML IV (19:37)
[2024-04-15 21:48] LABS: BUN Creatinine Ratio 35.6 (6-22); Blood Urea Nitrogen 63 mg/dL (7-17); Calcium 8.4 mg/dL (8.4-10.2); Carbon Dioxide 13 mmol/L (22-32); Chloride 119 mmol/L (98-107); Estimated Glomerular Filt Rate 29 mL/min (>60); Glucose 101 mg/dL (80-110); HEMOLYSIS < 15 (0-50); Potassium 5.1 mmol/L (3.4-5.1); Sodium 136 mmol/L (137-145)
== END 2024-04-15 22:18 | disposition home or self-care (01) ==
PROVIDERS: Emergency Medicine; Emergency Provider Emergency Medicine; Family Provider Internal Medicine; PCP Family Medicine
DX: E87.5 Hyperkalemia (principal); N17.9 Acute kidney failure, unspecified; R19.7 Diarrhea, unspecified; E86.0 Dehydration; R21 Rash and other nonspecific skin eruption
CPT/HCPCS: 36415; 80048; 80053; 85007; 85025; 93005; 96360; 96361; 99284